=== PATIENT | female | born 1945 | race African-American/Black ===

== ENCOUNTER 2021-07-08 17:32 | Emergency (ER) | payer MEDICARE, OTHER ==
[~2021-07-08] VITALS: Ht 162.6 cm; Wt 59.0 kg
[2021-07-08] MEDS ORDERED: IBUPROFEN 600MG TABLET PO ONE (18:00)
[2021-07-08 18:18] LABS: BASOPHILS % 0.4 % (0.0-2.0); EOSINOPHILS % 1.7 % (0.0-5.0); HEMATOCRIT. 34.6 % (36.0-48.0); HEMOGLOBIN. 11.3 g/dL (12.0-16.0); LYMPHOCYTES % 23.9 % (20.0-50.0); MEAN CORPUSCULAR HEMOGLOBIN 30.6 pg (28.0-32.0); MEAN CORPUSCULAR VOLUME 93.8 fL (81.0-99.0); MONOCYTES % 6.7 % (2.0-8.0); NEUTROPHILS % 67.3 % (40.0-76.0); PLATELET 103 x1000/uL (130-400); RED BLOOD CELL COUNT 3.69 mill/uL (4.2-5.4); RED CELL DISTRIBUTION WIDTH 16.7 % (11.6-14.6)
[2021-07-08 18:31] LABS: CHLORIDE 109 mEq/L (98-107)
[2021-07-08] MEDS ORDERED: MOBI7 MT (19:18)
[2021-07-08] MEDS ORDERED: IBUPROFEN 600MG TABLET PO NR (19:30)
[2021-07-08 19:42] VITALS: BP 186/87
== END 2021-07-08 19:43 | disposition home or self-care (01) ==
LOC: ER 17:32
DX: M19.072 Primary osteoarthritis, left ankle and foot (principal); I10 Essential (primary) hypertension; Z88.0 Allergy status to penicillin; Z98.890 Other specified postprocedural states
CPT/HCPCS: 36415; 73630; 80053; 85025; 93005; 99285

== ENCOUNTER 2021-08-21 09:55 | Inpatient (IN) | payer OTHER, MEDICAID ==
[~2021-08-21] VITALS: Ht 167.6 cm; Wt 53.1 kg
[~2021-08-21 09:55] MED LIST: MOBI7 MT
[2021-08-21] MEDS ORDERED: MORPHINE SULFATE 4 MG/ML CPJ (NOT FOR IM USE) IV STA (10:47)
[2021-08-21] MEDS ORDERED: ONDANSETRON HCL 4MG/2ML INJ IV STA (10:47)
[2021-08-21] MEDS ORDERED: SODIUM CHLORIDE 0.9% 1,000 ML IV ONE (11:00)
[2021-08-21 11:19] LABS: BASOPHILS % 0.5 % (0.0-2.0); EOSINOPHILS % 1.7 % (0.0-5.0); HEMATOCRIT. 38.7 % (36.0-48.0); HEMOGLOBIN. 12.9 g/dL (12.0-16.0); LYMPHOCYTES % 25.3 % (20.0-50.0); MEAN CORPUSCULAR HEMOGLOBIN 30.9 pg (28.0-32.0); MEAN CORPUSCULAR VOLUME 92.6 fL (81.0-99.0); MEAN PLATELET VOLUME 11.7 fl (7.4-10.4); MONOCYTES % 7.2 % (2.0-8.0); NEUTROPHILS % 65.3 % (40.0-76.0); PLATELET 127 x1000/uL (130-400); RED BLOOD CELL COUNT 4.18 mill/uL (4.2-5.4); RED CELL DISTRIBUTION WIDTH 17.1 % (11.6-14.6)
[2021-08-21 11:31] LABS: PROTHROMBIN TIME 62.5 sec (9.6-11.0)
[2021-08-21 12:06] LABS: CHLORIDE 107 mEq/L (98-107)
[2021-08-21 12:40] LABS: INR 6.8
[2021-08-21] MEDS ORDERED: PHYTONADIONE 10 MG in DEXTROSE 5% WATER 49 ML IV ONE (13:30)
[2021-08-21] MEDS ORDERED: LORAZEPAM 0.5MG TABLET PO PRN (15:45)
[2021-08-21] MEDS ORDERED: DIPHENHYDRAMINE 50MG/ML VIAL IV PRN (15:45)
[2021-08-21] MEDS ORDERED: MAGNESIUM/ALUMINUM HYDROXIDE/SIMETHICONE 30ML UDC PO PRN (15:45)
[2021-08-21] MEDS ORDERED: IPRATROPIUM/ALBUTEROL 0.5-3(2.5)MG/3ML NEB NEB PRN (15:45)
[2021-08-21] MEDS ORDERED: HYDRALAZINE 20MG/ML VIAL IV PRN (15:45)
[2021-08-21] MEDS ORDERED: ACETAMINOPHEN 650MG SUPP PR PRN (15:45)
[2021-08-21] MEDS ORDERED: NA PHOS,M-B/NA PHOS,DI-BA ENEMA 118ML PR PRN (15:45)
[2021-08-21] MEDS ORDERED: GUAIFENESIN 200MG/10ML SUGAR FREE UDC PO PRN (15:45)
[2021-08-21] MEDS ORDERED: DOCUSATE SODIUM 100MG CAPSULE PO PRN (15:45)
[2021-08-21] MEDS ORDERED: CLONIDINE 0.1MG TABLET PO PRN (15:45)
[2021-08-21] MEDS ORDERED: ONDANSETRON HCL 4MG/2ML INJ IV PRN (15:45)
[2021-08-21] MEDS ORDERED: NALOXONE HCL 0.4MG/ML VIAL IV PRN (16:00)
[2021-08-21 17:45] VITALS: BP 184/103
[2021-08-21] MEDS ORDERED: WARF1TAB85 PO (18:18)
[2021-08-21] MEDS: HYDROCODONE/ACETAMINOPHEN 5/325MG TABLET PO PRN (18:56)
[2021-08-21 20:00] VITALS: BP 121/62
[2021-08-21] MEDS: FAMOTIDINE 20MG TABLET PO SCH (21:33)
[2021-08-21] MEDS: MORPHINE SULFATE 2 MG/ML CPJ (NOT FOR IM USE) IV PRN (21:33)
[2021-08-21 22:40] LABS: PROTHROMBIN TIME 20.1 sec (9.6-11.0)
[2021-08-22] VITALS (12 sets, daily range): BP systolic 95–189; BP diastolic 62–108
[2021-08-22 05:44] LABS: CLARITY URINE CLEAR (CLEAR); COLOR URINE DARK YELLOW (YELLOW); KETONES URINE TRACE (NEGATIVE); LEUKOCYTE ESTERASE URINE NEGATIVE (NEGATIVE); NITRITE URINE NEGATIVE (NEGATIVE); OCCULT BLOOD URINE NEGATIVE (NEGATIVE); PROTEIN URINE 2+ (NEGATIVE); SPECIFIC GRAVITY URINE 1.022 (1.005-1.030)
[2021-08-22 06:22] LABS: BASOPHILS % 0.6 % (0.0-2.0); EOSINOPHILS % 2.8 % (0.0-5.0); HEMATOCRIT. 30.5 % (36.0-48.0); HEMOGLOBIN. 10.2 g/dL (12.0-16.0); LYMPHOCYTES % 26.3 % (20.0-50.0); MEAN CORPUSCULAR HEMOGLOBIN 31.1 pg (28.0-32.0); MEAN CORPUSCULAR VOLUME 93.3 fL (81.0-99.0); MEAN PLATELET VOLUME 12.4 fl (7.4-10.4); MONOCYTES % 9.5 % (2.0-8.0); NEUTROPHILS % 60.8 % (40.0-76.0); PLATELET 84 x1000/uL (130-400); RED BLOOD CELL COUNT 3.27 mill/uL (4.2-5.4); RED CELL DISTRIBUTION WIDTH 16.8 % (11.6-14.6)
[2021-08-22 06:30] LABS: INR 1.3; PROTHROMBIN TIME 13.9 sec (9.6-11.0)
[2021-08-22 06:48] LABS: CHLORIDE 109 mEq/L (98-107); CREATINE KINASE MB FRACTION 1.3 ng/mL (0.5-3.6)
[2021-08-22] MEDS: HYDROCODONE/ACETAMINOPHEN 5/325MG TABLET PO PRN ×2 (10:55→20:50)
[2021-08-22] MEDS ORDERED: LIDOCAINE HCL/PF 1% 10 MG/ML 5ML VIAL ONE (11:20)
[2021-08-22] MEDS ORDERED: FENTANYL CITRATE/PF 50MCG/ML 2ML VIAL ONE (11:22)
[2021-08-22] MEDS ORDERED: LORAZEPAM 2MG/ML CPJ IV NR (11:45)
[2021-08-22] MEDS ORDERED: WARFARIN SODIUM 1MG TABLET PO SCH (18:00)
[2021-08-22] MEDS: FAMOTIDINE 20MG TABLET PO SCH (20:50)
[2021-08-23] VITALS: BP 129/67
[2021-08-23 04:00] VITALS: BP 140/72
[2021-08-23 05:34] LABS: BASOPHILS % 0.4 % (0.0-2.0); EOSINOPHILS % 2.1 % (0.0-5.0); HEMATOCRIT. 30.8 % (36.0-48.0); HEMOGLOBIN. 10.4 g/dL (12.0-16.0); LYMPHOCYTES % 19.4 % (20.0-50.0); MEAN CORPUSCULAR VOLUME 92.1 fL (81.0-99.0); MEAN PLATELET VOLUME 11.6 fl (7.4-10.4); MONOCYTES % 8.4 % (2.0-8.0); NEUTROPHILS % 69.7 % (40.0-76.0); PLATELET 90 x1000/uL (130-400); RED BLOOD CELL COUNT 3.35 mill/uL (4.2-5.4); RED CELL DISTRIBUTION WIDTH 16.5 % (11.6-14.6)
[2021-08-23 05:38] LABS: INR 1.1; PROTHROMBIN TIME 12.2 sec (9.6-11.0)
[2021-08-23 09:18] VITALS: BP 165/81
[2021-08-23 12:00] VITALS: BP 145/83
[2021-08-23] MEDS: HYDROCODONE/ACETAMINOPHEN 5/325MG TABLET PO PRN ×2 (14:49→20:35)
[2021-08-23 16:00] VITALS: BP 141/85
[2021-08-23] MEDS ORDERED: WARFARIN SODIUM 1MG TABLET PO SCH (18:00)
[2021-08-23 20:00] VITALS: BP 133/79
[2021-08-23] MEDS: FAMOTIDINE 20MG TABLET PO SCH (20:35)
[2021-08-24] VITALS (7 sets, daily range): BP systolic 129–163; BP diastolic 66–99
[2021-08-24 05:35] LABS: INR 1.2
[2021-08-24] MEDS: HYDROCODONE/ACETAMINOPHEN 5/325MG TABLET PO PRN ×3 (11:55→23:42)
[2021-08-24] MEDS: LOSARTAN POTASSIUM 25 MG TABLET PO SCH (11:55)
[2021-08-24] MEDS: FUROSEMIDE 40MG/4ML VIAL IVP SCH (12:01)
[2021-08-24] MEDS: LIDOCAINE 5% PATCH TOP SCH (15:32)
[2021-08-24] MEDS ORDERED: WARFARIN SODIUM 2.5MG TABLET PO NR (18:00)
[2021-08-24] MEDS: CARVEDILOL 3.125 MG TABLET PO SCH (22:04)
[2021-08-24] MEDS: FAMOTIDINE 20MG TABLET PO SCH (22:04)
[2021-08-25 04:00] VITALS: BP 138/65
[2021-08-25 07:16] LABS: BASOPHILS % 0.7 % (0.0-2.0); EOSINOPHILS % 2.5 % (0.0-5.0); HEMATOCRIT. 34.5 % (36.0-48.0); HEMOGLOBIN. 11.4 g/dL (12.0-16.0); LYMPHOCYTES % 34.8 % (20.0-50.0); MEAN CORPUSCULAR HEMOGLOBIN 30.5 pg (28.0-32.0); MEAN CORPUSCULAR VOLUME 92.7 fL (81.0-99.0); MEAN PLATELET VOLUME 11.3 fl (7.4-10.4); MONOCYTES % 9.8 % (2.0-8.0); NEUTROPHILS % 52.2 % (40.0-76.0); PLATELET 108 x1000/uL (130-400); RED BLOOD CELL COUNT 3.72 mill/uL (4.2-5.4); RED CELL DISTRIBUTION WIDTH 16.7 % (11.6-14.6)
[2021-08-25 07:24] LABS: INR 1.2; PROTHROMBIN TIME 13.2 sec (9.6-11.0)
[2021-08-25 08:00] VITALS: BP 169/67
[2021-08-25] MEDS: LIDOCAINE 5% PATCH TOP SCH (09:34)
[2021-08-25] MEDS: FUROSEMIDE 40MG/4ML VIAL IVP SCH (09:34)
[2021-08-25] MEDS: CARVEDILOL 3.125 MG TABLET PO SCH ×2 (09:34→22:02)
[2021-08-25] MEDS: LOSARTAN POTASSIUM 25 MG TABLET PO SCH (09:34)
[2021-08-25 12:00] VITALS: BP 149/60
[2021-08-25 16:00] VITALS: BP 107/67
[2021-08-25] MEDS: ACETAMINOPHEN 325MG TABLET PO PRN (17:52)
[2021-08-25] MEDS ORDERED: WARFARIN SODIUM 3MG TABLET PO SCH (18:00)
[2021-08-25 20:00] VITALS: BP 148/74
[2021-08-25] MEDS: FAMOTIDINE 20MG TABLET PO SCH (22:02)
[2021-08-25] MEDS: MORPHINE SULFATE 2 MG/ML CPJ (NOT FOR IM USE) IV PRN (22:04)
[2021-08-26] VITALS: BP 105/59
[2021-08-26 04:00] VITALS: BP 112/61
[2021-08-26 07:41] LABS: INR 1.3; PROTHROMBIN TIME 13.3 sec (9.6-11.0)
[2021-08-26 08:00] VITALS: BP 110/62
[2021-08-26] MEDS: LIDOCAINE 5% PATCH TOP SCH (08:57)
[2021-08-26] MEDS: FUROSEMIDE 40MG/4ML VIAL IVP SCH (09:02)
[2021-08-26] MEDS: CARVEDILOL 3.125 MG TABLET PO SCH ×2 (09:03→20:53)
[2021-08-26] MEDS: LOSARTAN POTASSIUM 25 MG TABLET PO SCH (09:03)
[2021-08-26] MEDS ORDERED: ENOXAPARIN 40MG/0.4ML SYR SUBCUT SCH (11:00)
[2021-08-26 11:56] LABS: BASOPHILS % 1.2 % (0.0-2.0); EOSINOPHILS % 3.2 % (0.0-5.0); HEMATOCRIT. 35.7 % (36.0-48.0); HEMOGLOBIN. 11.9 g/dL (12.0-16.0); LYMPHOCYTES % 33.6 % (20.0-50.0); MEAN CORPUSCULAR HEMOGLOBIN 30.9 pg (28.0-32.0); MEAN CORPUSCULAR VOLUME 92.6 fL (81.0-99.0); PLATELET 106 x1000/uL (130-400); RED BLOOD CELL COUNT 3.86 mill/uL (4.2-5.4); RED CELL DISTRIBUTION WIDTH 16.7 % (11.6-14.6)
[2021-08-26 12:00] VITALS: BP 108/65
[2021-08-26 12:00] LABS: CHLORIDE 101 mEq/L (98-107)
[2021-08-26 16:00] VITALS: BP 119/66
[2021-08-26] MEDS ORDERED: WARFARIN SODIUM 3MG TABLET PO SCH ×2 (18:00→18:46)
[2021-08-26 20:00] VITALS: BP 109/56
[2021-08-26] MEDS: FAMOTIDINE 20MG TABLET PO SCH (20:53)
[2021-08-27] VITALS: BP 100/50
[2021-08-27 04:00] VITALS: BP 96/55
[2021-08-27] MEDS: ACETAMINOPHEN 325MG TABLET PO PRN ×2 (04:19→22:05)
[2021-08-27 06:46] LABS: INR 1.3; PROTHROMBIN TIME 13.7 sec (9.6-11.0)
[2021-08-27 08:00] VITALS: BP 117/80
[2021-08-27] MEDS ORDERED: ENOXAPARIN 40MG/0.4ML SYR SUBCUT NR (09:26)
[2021-08-27 09:48] LABS: BASOPHILS % 0.6 % (0.0-2.0); EOSINOPHILS % 2.9 % (0.0-5.0); HEMATOCRIT. 35.1 % (36.0-48.0); HEMOGLOBIN. 11.7 g/dL (12.0-16.0); MEAN CORPUSCULAR HEMOGLOBIN 30.8 pg (28.0-32.0); MEAN CORPUSCULAR VOLUME 92.2 fL (81.0-99.0); MEAN PLATELET VOLUME 12.3 fl (7.4-10.4); MONOCYTES % 11.6 % (2.0-8.0); NEUTROPHILS % 52.9 % (40.0-76.0); PLATELET 117 x1000/uL (130-400); RED BLOOD CELL COUNT 3.81 mill/uL (4.2-5.4); RED CELL DISTRIBUTION WIDTH 16.8 % (11.6-14.6)
[2021-08-27] MEDS: LIDOCAINE 5% PATCH TOP SCH (09:52)
[2021-08-27] MEDS: CARVEDILOL 3.125 MG TABLET PO SCH ×2 (09:52→21:06)
[2021-08-27] MEDS: LOSARTAN POTASSIUM 25 MG TABLET PO SCH (09:52)
[2021-08-27 12:00] VITALS: BP 101/54
[2021-08-27 16:00] VITALS: BP 104/58
[2021-08-27] MEDS ORDERED: WARFARIN SODIUM 4MG TABLET PO SCH (18:00)
[2021-08-27 20:00] VITALS: BP 121/65
[2021-08-27] MEDS: FAMOTIDINE 20MG TABLET PO SCH (21:06)
[2021-08-28] VITALS: BP 115/67
[2021-08-28 04:00] VITALS: BP 129/69
[2021-08-28 06:25] LABS: BASOPHILS % 0.6 % (0.0-2.0); EOSINOPHILS % 2.5 % (0.0-5.0); HEMATOCRIT. 34.4 % (36.0-48.0); HEMOGLOBIN. 11.4 g/dL (12.0-16.0); LYMPHOCYTES % 31.2 % (20.0-50.0); MEAN CORPUSCULAR HEMOGLOBIN 30.8 pg (28.0-32.0); MEAN CORPUSCULAR VOLUME 92.8 fL (81.0-99.0); MEAN PLATELET VOLUME 12.1 fl (7.4-10.4); MONOCYTES % 11.6 % (2.0-8.0); NEUTROPHILS % 54.1 % (40.0-76.0); PLATELET 120 x1000/uL (130-400); RED BLOOD CELL COUNT 3.71 mill/uL (4.2-5.4); RED CELL DISTRIBUTION WIDTH 16.6 % (11.6-14.6)
[2021-08-28 06:31] LABS: INR 1.4; PROTHROMBIN TIME 14.4 sec (9.6-11.0)
[2021-08-28 08:00] VITALS: BP 116/72
[2021-08-28] MEDS: LIDOCAINE 5% PATCH TOP SCH (10:10)
[2021-08-28] MEDS: CARVEDILOL 3.125 MG TABLET PO SCH (10:10)
[2021-08-28] MEDS: LOSARTAN POTASSIUM 25 MG TABLET PO SCH (10:10)
[2021-08-28] MEDS ORDERED: SODIUM CHLORIDE 0.45% 1,000 ML IV ONE (10:15)
[2021-08-28] MEDS ORDERED: ENOXAPARIN 40MG/0.4ML SYR SUBCUT NR (10:30)
[2021-08-28 12:00] VITALS: BP 119/52
[2021-08-28 16:00] VITALS: BP 108/72
[2021-08-28 16:47] VITALS: BP 108/72
[2021-08-28] MEDS ORDERED: WARFARIN SODIUM 4MG TABLET PO SCH (18:00)
== END 2021-08-28 18:17 | disposition home or self-care (01) | DRG 64 ==
LOC: ER 09:55 → EDBEDREQ 15:23 → EDBEDREQTM 15:23 → 6WST 16:43 → EDBEDREQSVC 16:45 → EDBEDREQTM 16:45 → ENRESERV 16:59
PROVIDERS: ADMIT Internal Medicine; ATTEND Internal Medicine
PROC: 0BBK3ZX Excision of Right Lung, Percutaneous Approach, Diagnostic (ICD-10-PCS; principal; 2021-08-22)
DX: I63.542 Cerebral infarction due to unspecified occlusion or stenosis of left cerebellar artery (principal); I50.23 Acute on chronic systolic (congestive) heart failure; S22.42XA Multiple fractures of ribs, left side, initial encounter for closed fracture; N17.9 Acute kidney failure, unspecified; I48.20 Chronic atrial fibrillation, unspecified; I42.0 Dilated cardiomyopathy; D68.9 Coagulation defect, unspecified; E87.5 Hyperkalemia; T45.515A Adverse effect of anticoagulants, initial encounter; F17.210 Nicotine dependence, cigarettes, uncomplicated; I65.21 Occlusion and stenosis of right carotid artery; E80.6 Other disorders of bilirubin metabolism; Z20.822 Contact with and (suspected) exposure to COVID-19; R91.8 Other nonspecific abnormal finding of lung field; D69.6 Thrombocytopenia, unspecified; W18.39XA Other fall on same level, initial encounter; Y93.89 Activity, other specified; Y92.89 Other specified places as the place of occurrence of the external cause; Y99.8 Other external cause status; Z79.01 Long term (current) use of anticoagulants; Z95.2 Presence of prosthetic heart valve; Z88.0 Allergy status to penicillin; Z79.899 Other long term (current) drug therapy; Z71.6 Tobacco abuse counseling; I11.0 Hypertensive heart disease with heart failure
CPT/HCPCS: 32408; 36415; 70551; 71045; 71100; 71250; 74176; 80048; 80053; 80061; 81003; 82550; 82553; 83735; 83880; 84443; 84484; 85025; 86850; 86870; 86900; 87426; 88305; 93005; 93306; 93880; 93970; 97162; 99285; J1650; J1940; J2060; J2270; J2405; J3010; J3430; J3490; J7030; J7060

== ENCOUNTER 2021-11-21 10:05 | Emergency (ER) | payer MEDICAID, OTHER ==
[~2021-11-21] VITALS: Ht 165.1 cm; Wt 45.0 kg
[~2021-11-21 10:05] MED LIST changes: +BENA10TA74 MT; +WARF1TAB85 PO
[2021-11-21 10:39] LABS: BASOPHILS % 0.7 % (0.0-2.0); EOSINOPHILS % 1.9 % (0.0-5.0); HEMATOCRIT. 31.8 % (36.0-48.0); HEMOGLOBIN. 10.7 g/dL (12.0-16.0); LYMPHOCYTES % 28.4 % (20.0-50.0); MEAN CORPUSCULAR VOLUME 92.5 fL (81.0-99.0); MEAN PLATELET VOLUME 10.6 fl (7.4-10.4); MONOCYTES % 8.6 % (2.0-8.0); NEUTROPHILS % 60.4 % (40.0-76.0); PLATELET 102 x1000/uL (130-400); RED BLOOD CELL COUNT 3.44 mill/uL (4.2-5.4); RED CELL DISTRIBUTION WIDTH 17.4 % (11.6-14.6)
[2021-11-21 10:47] LABS: CHLORIDE 111 mEq/L (98-107)
[2021-11-21] MEDS ORDERED: ACETAMINOPHEN 325MG TABLET PO ONE (16:30)
[2021-11-21 19:30] VITALS: BP 143/74
== END 2021-11-21 19:37 | disposition short-term general hospital (02) ==
LOC: ER 10:24
DX: R55 Syncope and collapse (principal); S09.90XA Unspecified injury of head, initial encounter; I48.91 Unspecified atrial fibrillation; I10 Essential (primary) hypertension; Z88.0 Allergy status to penicillin; Z20.822 Contact with and (suspected) exposure to COVID-19; X58.XXXA Exposure to other specified factors, initial encounter; Y93.89 Activity, other specified; Y92.89 Other specified places as the place of occurrence of the external cause; Y99.8 Other external cause status
CPT/HCPCS: 36415; 70450; 71045; 80053; 83880; 84484; 85025; 87426; 93005; 99285; C9803

== ENCOUNTER 2022-08-16 22:02 | Emergency (ER) | payer OTHER ==
[~2022-08-16] VITALS: Ht 167.6 cm; Wt 59.0 kg
[2022-08-17 01:00] LABS: CLARITY URINE CLEAR (CLEAR); COLOR URINE YELLOW (YELLOW); KETONES URINE NEGATIVE (NEGATIVE); LEUKOCYTE ESTERASE URINE NEGATIVE (NEGATIVE); NITRITE URINE NEGATIVE (NEGATIVE); OCCULT BLOOD URINE TRACE (NEGATIVE); PH URINE 5.5 (4.5-8.0); PROTEIN URINE 3+ (NEGATIVE); SPECIFIC GRAVITY URINE 1.017 (1.005-1.030)
[2022-08-17 01:01] LABS: BASOPHILS % 0.2 % (0.0-2.0); HEMATOCRIT. 37.8 % (36.0-48.0); HEMOGLOBIN. 12.8 g/dL (12.0-16.0); LYMPHOCYTES % 10.9 % (20.0-50.0); MEAN CORPUSCULAR HEMOGLOBIN 33.1 pg (28.0-32.0); MEAN CORPUSCULAR VOLUME 97.8 fL (81.0-99.0); MEAN PLATELET VOLUME 10.4 fl (7.4-10.4); MONOCYTES % 3.4 % (2.0-8.0); NEUTROPHILS % 84.5 % (40.0-76.0); PLATELET 94 x1000/uL (130-400); RED BLOOD CELL COUNT 3.87 mill/uL (4.2-5.4); RED CELL DISTRIBUTION WIDTH 16.4 % (11.6-14.6)
[2022-08-17 01:05] LABS: CHLORIDE 106 mEq/L (98-107)
[2022-08-17] MEDS ORDERED: HYDROCODONE/ACETAMINOPHEN 5/325MG TABLET PO ONE (01:15)
[2022-08-17] MEDS ORDERED: MORPHINE SULFATE 4 MG/ML CPJ (NOT FOR IM USE) IV STA (06:14)
[2022-08-17] MEDS ORDERED: ONDANSETRON HCL 4MG/2ML INJ IV STA (06:14)
[2022-08-17] MEDS ORDERED: NALOXONE HCL 0.4MG/ML VIAL IV PRN (06:45)
[2022-08-17] MEDS ORDERED: MORPHINE SULFATE 2 MG/ML CPJ (NOT FOR IM USE) IV PRN (06:45)
[2022-08-17 10:18] VITALS: BP 141/63
== END 2022-08-17 10:42 | disposition short-term general hospital (02) ==
LOC: ER 22:02 → CANBEDREQ 08-17 10:36 → ER 08-17 10:42
DX: M25.552 Pain in left hip (principal); I48.91 Unspecified atrial fibrillation; I10 Essential (primary) hypertension; Z88.0 Allergy status to penicillin
CPT/HCPCS: 36415; 71045; 72131; 73521; 73700; 80053; 81003; 85025; 93005; 96374; 96375; 99285; J2270; J2405